=== PATIENT | male | born 1995 | race Caucasian/White ===

== ENCOUNTER 2018-11-10 12:23 | Emergency (ER) | payer BC ==
--- NOTE | 2018-11-10 12:30 | ER Report ---
History and Physical Time Seen By MD: 12:29 Hx. of Stated Complaint: HAVING CHEST PAIN 0900. WAS AT URGENT CARE AND SENT HERE. TROPONIN WAS 1.06 AT URGENT CARE HPI/ROS CHIEF COMPLAINT: Chest pain HISTORY OF PRESENT ILLNESS: Patient is a 22-year-old male who is referred to us from [facility] urgent care for chest pain and elevated troponin. Patient states that approximately 3 hours prior to presentation while at rest he devel oped chest pain and left arm pain that did not seem to improve. He apparently went to urgent care where he had a workup that showed an elevated troponin greater than 1. D-dimer was reported to be negative. She states that he does use smokeless tobacco. He denies any other drug use including cocaine or stimulants. Denies any tqcb-rsw-ceifsvl type supplements. He has no known cardiac history. Patient denies having recent upper respiratory infections. No history of calf pain or recent travel. Patient states he is currently pain-free after he received aspirin at the urgent care. He states that he is no longer any chest pain or arm pain either. REVIEW OF SYSTEMS: Constitutional: No fever, no chills. Eyes: No discharge. ENT: No sore throat. Cardiovascular: Chest pain Respiratory: No cough, no shortness of breath. Gastrointestinal: No abdominal pain, no vomiting. Genitourinary: No hematuria. Musculoskeletal: No back pain. Skin: No rashes. Neurological: No headache. Allergies: Coded Allergies: No Known Drug Allergies (Unverified , 11/10/18) Past Medical/Surgical History Patient denies any significant past medical history. Hx Substance Use Disorder: No Hx Alcohol Use: Yes (OCCASIONAL ) Constitutional Physical Exam General Appearance: The patient is alert, has no immediate need for airway protection and no signs of toxicity. Eyes: Pupils equal and round no pallor or injection. ENT, Mouth: Mucous membranes are moist. Respiratory: There are no retractions, lungs are clear to auscultation. Cardiovascular: Regular rate and rhythm. Gastrointestinal: Abdomen is soft and non tender, no masses, bowel sounds normal. Neurological: Awake and alert Skin: Warm and dry, no rashes. Musculoskeletal: Neck is supple non tender. Extremities are nontender, nonswollen and have full range of motion. Medical Decision Making Data Points Laboratory Hematology Test 11/10/18 00:00 11/10/18 12:40 11/10/18 13:38 Thyroid Stimulating Hormone (TSH) 1.08 uIU/ml (0.46-4.68) Total Creatine Kinase 192 U/L (55-170) Creatine Kinase MB 25 U/L Creatine Kinase MB % 13 % Troponin I 3.470 ng/ml Urine Opiates Screen Negative Urine Barbiturates Screen Negative Ur Tricyclic Antidepressants Screen Negative Urine Phencyclidine Screen Negative Urine Amphetamines Screen Negative Urine Benzodiazepines Screen Negative Urine Cocaine Screen Negative Urine Cannabinoids Screen Negative Chemistry Test 11/10/18 00:00 11/10/18 12:40 11/10/18 13:38 Thyroid Stimulating Hormone (TSH) 1.08 uIU/ml (0.46-4.68) Total Creatine Kinase 192 U/L (55-170) Creatine Kinase MB 25 U/L Creatine Kinase MB % 13 % Troponin I 3.470 ng/ml Urine Opiates Screen Negative Urine Barbiturates Screen Negative Ur Tricyclic Antidepressants Screen Negative Urine Phencyclidine Screen Negative Urine Amphetamines Screen Negative Urine Benzodiazepines Screen Negative Urine Cocaine Screen Negative Urine Cannabinoids Screen Negative Toxicology Test 11/10/18 13:38 Urine Opiates Screen Negative Urine Barbiturates Screen Negative Ur Tricyclic Antidepressants Screen Negative Urine Phencyclidine Screen Negative Urine Amphetamines Screen Negative Urine Benzodiazepines Screen Negative Urine Cocaine Screen Negative Urine Cannabinoids Screen Negative EKG/Imaging EKG Interpretation EKG shows sinus tachycardia with a ventricular rate of [address] segment or T-wave abnormalities noted. Monitor Interpretation: Sinus Tachycardia ED Course/Re-evaluation ED Course Initial blood pressure on arrival was fairly hypertensive with blood pressure 170/108. Heart rate was regular at 120 bpm. Patient afebrile and satting 98% on room air. Patient with elevated troponin we will repeat this will also obtain CT scan of the chest even though the d-dimer was negative PE still remains in the differential diagnosis. Other causes certainly could be non-STEMI, and vasospasm induced elevation of troponin, possible cocaine abuse or other type of stimulant abuse, which patient is not admitting to at this time. We'll check urine drug screen [place] [facility] [place] may require additional services beyond what [place] could handle and recommended that we transfer the patient to [place]. This seems like a re asonable plan. I did speak with Dr. Paniagua internal medicine and Dr. Ramirez from cardiology and they have accepted specifically Dr. Paniagua has accepted to the internal medicine service. History physical exam all pertinent lab data ER course and imaging studies were reviewed. Patient remains pain-free at this time current vital signs are blood pressure 135/106, respiratory rate 14 heart rate of 109 sinus tachycardia on the monitor with oxygen saturation of 97%. Dr. Paniagua agrees with our plan which was to give Lovenox 1 mg/kg. Patient has a half-inch of Nitropaste applied again is pain-free we will transfer her by medical helicopter. I did speak with the patient's mother, Shelley Ca [phone] she was updated on the patient's condition and transferred to [facility]. Decision to Disposition Date: Nov 10, 2018 Decision to Disposition Time: 14:51 Depart Departure Latest Vital Signs Impression: Primary Impression: Elevated troponin Condition: Improved Disposition: XFER TO [facility]UTE [facility]ARE [facility]OSP[facility] (to [facility] Dr Paniagua) ANY RODRIGUEZ MD Nov 10, 2018 12:30
[2018-11-10] MEDS ORDERED: METOPROLOL TART 5 MG/5 ML VIAL IVP ONE (12:35)
[2018-11-10] MEDS ORDERED: IOPAMIDOL 76% 150 ML INFUS BTL 150 ML ONE ×2 (13:06→13:18)
[2018-11-10] MEDS ORDERED: NS(*) 0.9% 50 ML BAG 50 ML ONE ×2 (13:07→13:18)
[2018-11-10] MEDS ORDERED: NITROGLYCERIN OINT 1 GM PKT TP ONE (13:10)
[2018-11-10] MEDS ORDERED: ENOXAPARIN 100 MG/ML SYR SC ONE (13:10)
--- NOTE | 2018-11-10 13:46 | RADIOLOGY IMAGING REPORT ---
FACILITY: [facility] PATIENT NAME: Jesse Ca : 1995 MR: [id number] V: [id number] EXAM DATE: ORDERING PHYSICIAN: ANY RODRIGUEZ TECHNOLOGIST: Location: [facility] Patient: Jesse Ca : 1995 Visit/Account:[id number] Date of Sevice: 11/10/2018 CT CTA CHEST W & W/O CON HISTORY: S pain, elevated troponin ADDITIONAL HISTORY: None. TECHNIQUE: CTA chest with intravenous contrast. Axial imaging acquired following administration of IV contrast timed for maximum opacification of the pulmonary arterial vasculature. Slab 3-D MIP archana nstructed images were also created for further evaluation and interpretation. Reconstruction of the [facility] data set includes multiplanar 2-D in the sagittal and coronal planes and 3-D reconstructed barbi nal slab MIP series. 3-D images were created by the technologist.Dose Lowering Technique One of the following dose optimization techniques was utilized in the performance of this exam: Autom ated exposure control; adjustment of the mA and/or kV according to the patient's size; or use of an i terative reconstruction technique. Specific details can be referenced in the facility's radiology C T exam operational policy. CONTRAST: 150 mL Isovue-370 in two separate 75 mL injections due to missed contrast bolus on the or iginal scan COMPARISON: None. FINDINGS: Lungs/pleura: Negative. Heart/vessels: Negative. There are no filling defects seen in the pulmonary arteries worrisome for a pulmonary embolus. Mediastinum/lymph nodes: Negative. Visualized upper abdomen: Incompletely imaged is a multi septated cystic structure projecting just m edial to the splenic hilum measuring approximately 2.9 x 2.1 cm. This may actually be within the tammy l of the pancreas further evaluation with ultrasound is suggested. Bones/soft tissues: Negative. Additional findings: None IMPRESSION: No evidence of pulmonary emboli or pulmonary infiltrates Incompletely imaged is a multiseptated cystic structure projecting just medial to the splenic hilum a s described above. This may actually be within the tail the pancreas. Further evaluation with ultra sound is suggested Report Dictated By: Jackie Mixon MD at 11/10/2018 1:31 PM Report E-Signed By: Jackie Mixon MD at 11/10/2018 1:41 PM WSN:[email or web address]
[2018-11-10 14:45] VITALS: BP 135/106
--- NOTE | 2018-11-10 15:56 | EKG ---
FACILITY: [facility] [place] PATIENT NAME: SABRINA SCHULTZ : [id number] MR: [id number] V: [id number] EXAM DATE: ORDERING PHYSICIAN: ANY RODRIGUEZ TECHNOLOGIST: EMIL Caban Reason : CARDIAC Blood Pressure : / mmHG Vent. Rate : 120 BPM Atrial Rate : 120 BPM P-R Int : 162 ms QRS Dur : 096 ms QT Int : 312 ms P-R-T Axes : 062 041 065 degrees QTc Int : 440 ms Sinus tachycardia Nonspecific ST findings inferior leads No previous ECGs available Confirmed by BUCK JAMA ([id number]) on 11/10/2018 4:55:16 PM Referred By: Confirmed By:BUCK JAMA
== END 2018-11-10 15:35 | disposition short-term general hospital (02) ==
LOC: ER 12:33
DX: R79.89 Other specified abnormal findings of blood chemistry (principal)
CPT/HCPCS: 71275; 80305; 82553; 84443; 84484; 93005; 96372; 96374; 99285; J1650; J7050; Q9967

== ENCOUNTER → 2018-11-10 | Outpatient (REF) | payer BC ==
[2018-11-10 11:39] LABS: PLATELET COUNT, AUTOMATED 173 K/uL (150-450)
== END ==
PROVIDERS: ATTEND Family Medicine
DX: R07.9 Chest pain, unspecified (principal)
CPT/HCPCS: 82040; 82247; 82310; 82374; 82435; 82565; 82947; 84075; 84132; 84155; 84295; 84450; 84460; 84484; 84520; 85025; 85379

== ENCOUNTER → 2018-11-10 | Outpatient (CLI) | payer BC | LOC: AMB 12:12 | PROVIDERS: ATTEND Nurse Practitioner | DX: R79.89 Other specified abnormal findings of blood chemistry (principal); R07.9 Chest pain, unspecified | CPT/HCPCS: A0425; A0427 ==

== ENCOUNTER → 2018-11-10 | Outpatient (CLI) | payer BC | LOC: AMB 15:12 | PROVIDERS: ATTEND Nurse Practitioner | DX: R79.89 Other specified abnormal findings of blood chemistry (principal) ==

== ENCOUNTER → 2018-12-01 | Outpatient (CLI) | payer BC ==
--- NOTE | 2018-12-01 13:51 | RADIOLOGY IMAGING REPORT ---
[place] [facility] [place] Ca : 1995 MR: [id number] V: [id number] EXAM DATE: ORDERING PHYSICIAN: TEJ GUZMAN TECHNOLOGIST: [place] [facility] [place]: Jesse Ca : 1995 Visit/Account:[id number] Date of Sevice: 12/01/2018 ABDOMEN COMPLETE HISTORY: CT demonstrating cystic appearing lesion in tail of pancreas COMPARISON: CT scan of the chest from 11/10/2018 FINDINGS: Gallbladder: Unremarkable; no stones or sludge. Liver: 16 cm. No liver lesions Common duct: Normal, 2.2 mm diameter. Pancreas: Reidentified is the cystic appearing insinuating within the splenic hilum and immediately c ontiguous to the pancreatic tail. Overall size of the of the cystic structures 3 x 2 cm similar to t he CT appearance. Spleen: 12 cm. No splenic lesions Right kidney: 11 x 6.5 x 5.3 cm. No hydronephrosis. No cortical mass lesions Left Kidney: 11.6 x 5.0 x 4.4 cm. No hydronephrosis. No cortical mass lesions. Upper abdominal aorta and IVC: Patent. Ascites: None visualized. IMPRESSION: 1. Ultrasound does not add any additional information to the CT scan. The somewhat lobulated cystic structure extending from the splenic hilum and immediately contiguous to the tail of the pancreas is reidentified. Whether this arises from the pancreatic tail or not cannot be determined by this exam ination. Differential could include a benign cystic lesion within the tail of pancreas versus the po ssibility of other cystic etiologies such as a lymphangioma immediately contiguous to the spleen and pancreas. An MRI would likely be the best study for evaluation if there is continued clinical concer n. Report Dictated By: Agapito Vasquez MD at 12/01/2018 1:00 PM Report E-Signed By: Agapito Vasquez MD at 12/01/2018 1:45 PM WSN:[email or web address]
== END ==
LOC: US 01:26
PROVIDERS: ATTEND Family Medicine
DX: R19.00 Intra-abdominal and pelvic swelling, mass and lump, unspecified site (principal)
CPT/HCPCS: 76700